=== PATIENT | female | born 1970 | race Caucasian/White ===

== ENCOUNTER 2018-12-14 15:56 | Emergency (ER) | payer OTHER ==
[~2018-12-14] VITALS: Ht 154.9 cm; Wt 76.2 kg
[2018-12-14 16:03] VITALS: Ht 154.9 cm; Wt 76.2 kg
[2018-12-14 17:35] VITALS: BP 119/71
== END 2018-12-14 17:35 | disposition home or self-care (01) ==
LOC: ED 15:56
DX: B34.9 Viral infection, unspecified (principal); J98.01 Acute bronchospasm; F17.210 Nicotine dependence, cigarettes, uncomplicated; I10 Essential (primary) hypertension
CPT/HCPCS: 99406; J7512; J7613; J7644

== ENCOUNTER 2019-01-26 01:37 | Emergency (ER) | payer OTHER ==
[~2019-01-26] VITALS: Ht 154.9 cm; Wt 77.6 kg
[2019-01-26 01:44] VITALS: Ht 154.9 cm; Wt 77.6 kg
[2019-01-26 03:09] VITALS: BP 123/74
== END 2019-01-26 03:09 | disposition home or self-care (01) ==
LOC: ED 01:37
DX: J06.9 Acute upper respiratory infection, unspecified (principal); I10 Essential (primary) hypertension; Z87.442 Personal history of urinary calculi